=== PATIENT | female | born 1955 | race Caucasian/White ===

== ENCOUNTER → 2016-08-09 | Outpatient (CLI) | payer MEDICARE ==
[2016-08-09 14:15] LABS: ABSOLUTE BASOPHILS # (AUTO) 0.1 10^3/uL (0.0-0.2); ABSOLUTE LYMPHOCYTES (AUTO) 2.9 10^3/uL (0.5-4.7); ABSOLUTE MONOCYTES (AUTO) 0.6 10^3/uL (0.1-1.4); ABSOLUTE NEUT (AUTO) 4.9 10^3/uL (1.7-8.2); BASOPHILS % (AUTO) 0.7 % (0-2); EOSINOPHILS % (AUTO) 10.7 % (0-6); HEMATOCRIT 42.5 % (36.0-47.0); HEMOGLOBIN 13.4 g/dL (12.0-15.5); HGB HCT DIFFERENCE -2.3; LYMPHOCYTES % (AUTO) 30.3 % (13-45); MEAN CORPUSCULAR HEMOGLOBIN 30.2 pg (27.0-33.4); MEAN CORPUSCULAR HGB CONC 31.6 g/dL (32.0-36.0); MEAN CORPUSCULAR VOLUME 96 fl (80-97); MONOCYTES % (AUTO) 6.7 % (3-13); RED BLOOD COUNT 4.44 10^6/uL (3.72-5.28); RED CELL DISTRIBUTION WIDTH 13.5 % (11.5-14.0); SEGMENTED NEUTROPHILS % (AUTO) 51.6 % (42-78); WHITE BLOOD COUNT 9.6 10^3/uL (4.0-10.5)
[2016-08-11 17:36] LABS: IMMUNOGLOBULIN A 138 mg/dL (87-352); IMMUNOGLOBULIN G 725 mg/dL (700-1600)
[2016-08-12 07:32] LABS: IMMUNOGLOBULIN M 141 mg/dL (26-217)
[2016-08-13 07:09] LABS: IMMUNOGLOBULIN D QUANT SERUM <0.12 mg/dL (<14.11)
== END ==
LOC: OD 13:05
PROVIDERS: ATTEND Internal Medicine Pulmonary Disease
DX: R05 Cough (principal); J32.9 Chronic sinusitis, unspecified; J43.9 Emphysema, unspecified; B37.9 Candidiasis, unspecified
CPT/HCPCS: 36415; 82784; 85025; 86701

== ENCOUNTER → 2016-08-13 | Outpatient (CLI) | payer MEDICARE | LOC: OD 10:30 | PROVIDERS: ATTEND Internal Medicine Pulmonary Disease | DX: R05 Cough (principal); J32.9 Chronic sinusitis, unspecified; J43.9 Emphysema, unspecified; B37.9 Candidiasis, unspecified | CPT/HCPCS: 70220 ==

== ENCOUNTER → 2016-08-19 | Outpatient (CLI) | payer MEDICARE | LOC: OD 11:37 | PROVIDERS: ATTEND Internal Medicine Pulmonary Disease | DX: R05 Cough (principal); R79.89 Other specified abnormal findings of blood chemistry | CPT/HCPCS: 36415; 71020; 82785 ==

== ENCOUNTER → 2016-08-29 | Outpatient (CLI) | payer MEDICARE ==
[2016-08-29 15:58] LABS: ABSOLUTE BASOPHILS # (AUTO) 0.1 10^3/uL (0.0-0.2); ABSOLUTE EOSINOPHILS # (AUTO) 1.1 10^3/uL (0.0-0.6); ABSOLUTE LYMPHOCYTES (AUTO) 3.1 10^3/uL (0.5-4.7); ABSOLUTE MONOCYTES (AUTO) 0.6 10^3/uL (0.1-1.4); BASOPHILS % (AUTO) 0.9 % (0-2); EOSINOPHILS % (AUTO) 13.6 % (0-6); HEMATOCRIT 40.1 % (36.0-47.0); HEMOGLOBIN 13.4 g/dL (12.0-15.5); HGB HCT DIFFERENCE 0.1; LYMPHOCYTES % (AUTO) 39.2 % (13-45); MEAN CORPUSCULAR HEMOGLOBIN 31.2 pg (27.0-33.4); MEAN CORPUSCULAR HGB CONC 33.4 g/dL (32.0-36.0); MEAN CORPUSCULAR VOLUME 94 fl (80-97); MONOCYTES % (AUTO) 7.7 % (3-13); RED BLOOD COUNT 4.29 10^6/uL (3.72-5.28); RED CELL DISTRIBUTION WIDTH 13.2 % (11.5-14.0); SEGMENTED NEUTROPHILS % (AUTO) 38.6 % (42-78); WHITE BLOOD COUNT 7.9 10^3/uL (4.0-10.5)
== END ==
LOC: OD 14:45
PROVIDERS: ATTEND Internal Medicine Pulmonary Disease
DX: R05 Cough (principal)
CPT/HCPCS: 36415; 71020; 85025

== ENCOUNTER 2016-09-03 10:48 | Emergency (ER) | payer MEDICARE ==
--- NOTE | 2016-09-03 11:27 | ER Document Report ---
ED Medical Screen (RME) - General Stated Complaint: SHORTNESS OF BREATH AND CHEST PAIN Notes: shortness of breath on/off for 4 weeks has been following with dr barba pulmonology patient is able to speak in full sentences but labored breathing at rest patient has a green house and is concerned for aspergilolosis Denies recent intubation, surgery, BC, tobacco use recent travel about 90 days ago 5.5 hours Patient has been evaluated and I have completed a rapid medical examination. A complete history and physical examination along with evaluation of workup will be completed by the provider once a bed is assigned TRAVEL OUTSIDE OF THE [place] IN LAST 30 DAYS: No - Related Data Allergies/Adverse Reactions: Penicillins Allergy (Mild, Verified 01/13/14 08:16) itching morphine [Morphine] Adverse Reaction (Intermediate, Verified 01/13/14 08:16) AMS Past Medical History - Past Medical History Cardiac Medical History: Denies: Hx Coronary Artery Disease, Hx Heart Attack, Hx Hypertension - Hypotension Pulmonary Medical History: Denies: Hx Asthma, Hx Bronchitis, Hx COPD, Hx Pneumonia Neurological Medical History: Reports: Hx Seizures. Denies: Hx Cerebrovascular Accident Musculoskeltal Medical History: Reports Hx Arthritis - Hands, Spine Past Surgical History: Denies: Hx Hysterectomy - Immunizations Hx Diphtheria, Pertussis, Tetanus Vaccination: Yes Physical Exam - Vital signs Vitals: Temp Pulse Resp BP Pulse Ox 97.8 F 74 22 H 121/102 H 100 09/03/16 11:10 09/03/16 11:10 09/03/16 11:10 09/03/16 11:10 09/03/16 11:10 Course - Vital Signs Vital signs: Temp Pulse Resp BP Pulse Ox 97.8 F 74 22 H 121/102 H 100 09/03/16 11:10 09/03/16 11:10 09/03/16 11:10 09/03/16 11:10 09/03/16 11:10
[2016-09-03] MEDS ORDERED: PREDNISONE 20 MG TABLET PO ONE (11:28)
[2016-09-03] MEDS ORDERED: IPRATROPIUM/ALBUTEROL 0.5-2.5 MG/3 ML AMPUL NEB ONE (11:28)
[2016-09-03] MEDS ORDERED: ALBUTEROL SULFATE 0.083% NEB 2.5 MG/3 ML AMPUL NEB SCH (11:43)
[2016-09-03 13:02] LABS: ABSOLUTE BASOPHILS # (AUTO) 0.1 10^3/uL (0.0-0.2); ABSOLUTE LYMPHOCYTES (AUTO) 3.1 10^3/uL (0.5-4.7); ABSOLUTE MONOCYTES (AUTO) 0.6 10^3/uL (0.1-1.4); ABSOLUTE NEUT (AUTO) 2.6 10^3/uL (1.7-8.2); BASOPHILS % (AUTO) 1.1 % (0-2); EOSINOPHILS % (AUTO) 13.7 % (0-6); HEMATOCRIT 39.3 % (36.0-47.0); HEMOGLOBIN 13.1 g/dL (12.0-15.5); LYMPHOCYTES % (AUTO) 41.9 % (13-45); MEAN CORPUSCULAR HEMOGLOBIN 31.5 pg (27.0-33.4); MEAN CORPUSCULAR HGB CONC 33.4 g/dL (32.0-36.0); MEAN CORPUSCULAR VOLUME 94 fl (80-97); MONOCYTES % (AUTO) 7.5 % (3-13); RED BLOOD COUNT 4.17 10^6/uL (3.72-5.28); RED CELL DISTRIBUTION WIDTH 13.5 % (11.5-14.0); SEGMENTED NEUTROPHILS % (AUTO) 35.8 % (42-78); VENOUS BLOOD BASE EXCESS 1.5 mmol/L; VENOUS BLOOD HCO3 28.5 mmol/L (20-32); VENOUS BLOOD PCO2 55.2 mmHg (35-63); VENOUS BLOOD PH 7.33 (7.30-7.42); WHITE BLOOD COUNT 7.4 10^3/uL (4.0-10.5)
[2016-09-03 13:16] LABS: BLOOD UREA NITROGEN 21 mg/dL (7-20); CALCIUM 9.9 mg/dL (8.4-10.2); CARBON DIOXIDE 28 mmol/L (22-30); CHLORIDE 104 mmol/L (98-107); CREATININE RESULT 0.72 mg/dL (0.52-1.25); GLUCOSE 102 mg/dL (75-110); POTASSIUM 4.9 mmol/L (3.6-5.0)
[2016-09-03 13:17] LABS: ALANINE AMINOTRANSFERASE 24 U/L (9-52); ALBUMIN 3.8 g/dL (3.5-5.0); ALKALINE PHOSPHATASE 118 U/L (38-126); ANION GAP 10 (5-19); ASPARTATE AMINO TRANSFERASE 21 U/L (14-36); BILIRUBIN,TOTAL 0.8 mg/dL (0.2-1.3); TOTAL PROTEIN 6.7 g/dL (6.3-8.2)
--- NOTE | 2016-09-03 13:21 | EKG REPORT ---
SEVERITY:- NORMAL ECG - SINUS RHYTHM : Confirmed by: Justyn Urena MD 03-Sep-2016 13:19:52
--- NOTE | 2016-09-03 16:07 | ER Document Report ---
ED Respiratory Problem - General Chief Complaint: Shortness Of Breath Stated Complaint: SHORTNESS OF BREATH AND CHEST PAIN Time seen by provider: 15:30 Mode of Arrival: Ambulatory Information source: Patient Notes: 61 yo female pt of dr. hermosillo with shortness of brearh and cough since april was unable to see him this week because he had the flu. She was told that she could not see the RIM ROLLER OPERATOR there. Reason she came to ER was to get confirmatory tests and a CT that Dr Hermosillo plans to order. She has diagnosed herself with as Aspergillosis. No new symptoms. Has all the meds she needs as bronchodilaters. TRAVEL OUTSIDE OF THE [place] IN LAST 30 DAYS: No - Related Data Allergies/Adverse Reactions: Penicillins Allergy (Mild, Verified 01/13/14 08:16) itching morphine [Morphine] Adverse Reaction (Intermediate, Verified 01/13/14 08:16) AMS Past Medical History - General Information source: Patient - Social History Smoking Status: Never Smoker Chew tobacco use (# tins/day): No Frequency of alcohol use: Occasional Drug Abuse: None Lives with: Spouse/Significant other Family History: Reviewed & Not Pertinent Patient has suicidal ideation: No Patient has homicidal ideation: No Pulmonary Medical History: Reports: Hx Bronchitis Neurological Medical History: Reports: Hx Seizures Renal/ Medical History: Denies: Hx Peritoneal Dialysis Musculoskeltal Medical History: Reports Hx Arthritis - Hands, Spine Surgical Hx: Negative - Immunizations Hx Diphtheria, Pertussis, Tetanus Vaccination: Yes Review of Systems - Review of Systems Constitutional: No symptoms reported EENT: No symptoms reported Cardiovascular: No symptoms reported Respiratory: See HPI Gastrointestinal: No symptoms reported Genitourinary: No symptoms reported Female Genitourinary: No symptoms reported Musculoskeletal: No symptoms reported Skin: No symptoms reported Hematologic/Lymphatic: No symptoms reported Neurological/Psychological: No symptoms reported Physical Exam - Vital signs Vitals: Temp Pulse Resp BP Pulse Ox 97.8 F 74 22 H 121/102 H 100 09/03/16 11:10 09/03/16 11:10 09/03/16 11:10 09/03/16 11:10 09/03/16 11:10 Interpretation: Tachypneic - when you talk with her she starts getting anxious and breathing fast. - General General appearance: Appears well, Alert In distress: None Notes: thin - HEENT Head: Normocephalic, Atraumatic Eyes: Normal Conjunctiva: Normal Pupils: PERRL Tympanic membrane: Normal Nasal: Normal Mouth/Lips: Normal Mucous membranes: Normal Pharynx: Normal Neck: Supple. No: Lymphadenopathy - Respiratory Respiratory status: No respiratory distress Chest status: Nontender Breath sounds: Normal Chest palpation: Normal - Cardiovascular Rhythm: Regular Heart sounds: Normal auscultation Murmur: No - Abdominal Inspection: Normal Distension: No distension Bowel sounds: Normal Tenderness: Nontender Organomegaly: No organomegaly - Back Back: Normal, Nontender - Extremities General upper extremity: Normal inspection, Nontender, Normal color, Normal ROM , Normal temperature General lower extremity: Normal inspection, Nontender, Normal color, Normal ROM , Normal temperature, Normal weight bearing. No: Celeste's sign - Neurological Neuro grossly intact: Yes Cognition: Normal Orientation: AAOx4 Munith Coma Scale Eye Opening: Spontaneous Jean-Claude Coma Scale Verbal: Oriented Jean-Claude Coma Scale Motor: Obeys Commands Jean-Claude Coma Scale Total: 15 Speech: Normal Motor strength normal: LUE, RUE, LLE, RLE Sensory: Normal - Psychological Associated symptoms: Normal affect, Normal mood - Skin Skin Temperature: Warm Skin Moisture: Dry Skin Color: Normal Skin irregularity: negative: Rash Course - Re-evaluation Re-evalutation: 09/03/16 15:56 Spoke with in who is a nurse practitioner that works with Dr. Hubereen they can see her at 245 tomorrow to investigate further the aspergillosis possible diagnosis of the patient thinks that she has. The CTA shows mild COPD No pulmonary embolism I will discuss this with the patient. I added an aspergillosis antibody screen quantitative to the blood that has artery been drawn today. The patient does not want to take the prednisone that was ordered in triage. She has cardiomegaly. She quit smoking 4 years ago. 09/03/16 16:17 I have consulted with the supervisory physician [facility] dr. victoria, vitals are stable for discharge. I explained to the patient that she can see the nurse practitioner tomorrow at 2:45 pm that she needs to call back for the appointment and I've given a copy of the CT scan and labs done today. 09/03/16 16:44 i confirmed with the office that she will take the 2:45 pm appt tomorrow - Vital Signs Vital signs: Temp Pulse Resp BP Pulse Ox 97.8 F 74 18 123/65 100 09/03/16 11:10 09/03/16 11:10 09/03/16 16:02 09/03/16 16:02 09/03/16 16:01 - Laboratory Result Diagrams: 09/03/16 12:40 09/03/16 12:40 Laboratory results interpreted by me: 09/03/16 09/03/16 09/03/16 12:40 12:40 12:40 Seg Neutrophils % 35.8 L Eosinophils % 13.7 H Absolute Eosinophils 1.0 H D-Dimer 0.70 H BUN 21 H Discharge - Discharge Clinical Impression: chronic shortness of breath, Cough, right lower chest wall pain with cough Condition: Good Disposition: HOME, SELF-CARE Instructions: Chest Pain of Unclear Cause ([facility]), Chronic Obstructive Lung Disease ([facility]), Bronchitis ([facility]) Additional Instructions: Ольга Dc the nurse practitioner at Dr. Hermosillo's office tomorrow at 2:45 PM as instructed, call them today to confirm that she wanted that appointment I have added the aspergillosis antibody test to the blood that was drawn today in the takes 3-5 days for the result copy of labs and imaging given to you return to er if symptoms worsen continue the inhaled bronchodilators that dr hermosillo wants you to take. Prescriptions: Tramadol HCl [Ultram 50 mg Tablet] 50 mg PO ASDIR PRN #20 tablet PRN Reason: Referrals: MICHELLE HERMOSILLO MD [ACTIVE PROVISIONAL STAFF] - Follow up tomorrow
[2016-09-03 16:08] VITALS: BP 123/65
[2016-09-03] MEDS ORDERED: TRAMADOL HCL 50 MG TABLET PO ONE (16:22)
[2016-09-07 19:36] LABS: ASPERGILLUS FLAVUS Negative (Neg:<1:1); ASPERGILLUS FUMIGATUS Negative (Neg:<1:1)
[2016-09-08 06:14] LABS: ASPERGILLUS NIGER Negative (Neg:<1:1)
== END 2016-09-03 16:40 | disposition home or self-care (01) ==
LOC: ER 10:48
DX: R06.02 Shortness of breath (principal); R07.89 Other chest pain; R05 Cough
CPT/HCPCS: 93005; 94640; 99285; 36415; 85025; 80053; 86606 ×3; 85379; 82803; 71275; 93010; A9270 ×2; J7620

== ENCOUNTER → 2018-02-19 | Outpatient (CLI) | payer MEDICARE ==
--- NOTE | 2018-02-19 16:53 | RADIOLOGY REPORT (SQ) ---
EXAM DESCRIPTION: U/S EXTREMITY NONVASCULAR LTD COMPLETED DATE/TIME: 02/19/2018 1:51 pm REASON FOR STUDY: SOFT TISSUE MASS (M79.9) M79.9 SOFT TISSUE DISORDER, UNSPECIFIED COMPARISON: None. TECHNIQUE: Dynamic and static grayscale images acquired of the localized site of clinical concern an d recorded on PACS. Additional selected color Doppler and spectral images recorded. SITE OF CONCERN: Left ankle LIMITATIONS: None. FINDINGS: SKIN AND SUBCUTANEOUS TISSUES: There is a complex mass with some cystic and some septated portions in the area palpable concern along the left ankle. Largest component measures 2.4 x 2.9 x 0 .5 cm. Smaller component is 1.6 x 1.3 x 0.3 cm. Most likely a complicated ganglion cyst for more wo rrisome process not excluded based on the ultrasound alone. DEEP SOFT TISSUES/MUSCLES: No masses. No fluid collections. No edema. VASCULAR: No increased or decreased vascularity. No occlusions. OTHER: No other significant finding. IMPRESSION: Complex mass in the ankle most likely a complicated ganglion cyst. Additional different ial includes complex solid tumors. COMMENT: Consider MRI. TECHNICAL DOCUMENTATION: JOB ID: [id number] [employer]- All Rights Reserved Reading location - IP/workstation name: [email or web address]
== END ==
LOC: RAD 12:39
PROVIDERS: ATTEND Family Medicine
DX: M79.9 Soft tissue disorder, unspecified (principal)
CPT/HCPCS: 76882

== ENCOUNTER 2019-01-15 07:53 | Day surgery (SDC) | payer MEDICARE ==
[~2019-01-15 07:53] MED LIST: PROPOFOL INJ 200 MG/20 ML VIAL IV ONE
[2019-01-15 09:51] VITALS: BP 107/66
--- NOTE | 2019-01-15 11:28 | Operative Report ---
Operative Report DATE OF SURGERY: 01/15/19 Operative Report: The risks, benefits and alternatives of the procedure including the risk of bleeding, perforation requiring surgery have been explained to the patient in detail and informed consent has been obtained. The patient is placed in the left, lateral decubital position. Timeout was called. Propofol medication is administered. Rectal examination is done which did not reveal any masses, tears or fissures. An Olympus videoscope was seen introduced into the patient's rectum. The scope was then carefully advanced all the way to the cecum. The cecum was identified by the usual anatomical landmarks including the ileocecal valve as well as the appendiceal office. Photodocumentation is obtained. The scope was then sequentially pulled back via the various segments of the colon including the ascending colon, hepatic flexure, transverse colon, splenic flexu re, descending colon and finally into the rectosigmoid portions of the colon. Retroflexion maneuvers performed. The risks benefits and alternatives of the procedure explained to the patient in detail and informed consent is obtained.A GIF Olympus video scope was inserted into the patient's mouth and hypopharynx, the esophagus is identified intubated and insufflated ,the scope was then advanced through the esophagus stomach and duodenum ,retroflexion maneuver is done ,the esophagus stomach and first and second portions of the duodenum examined. PREOPERATIVE DIAGNOSIS: Personal history of polyps. Gastroesophageal reflux disease POSTOPERATIVE DIAGNOSIS: Mild right-sided colonic inflammation status post biopsy. Gastritis status post biopsy OPERATION: Colonoscopy with biopsy. EGD with biopsy SURGEON: DENIA BARAHONA ANESTHESIA: LMAC TISSUE REMOVED OR ALTERED: As noted above. COMPLICATIONS: None. ESTIMATED BLOOD LOSS: None. INTRAOPERATIVE FINDINGS: As noted above. PROCEDURE: Patient tolerated the procedure well. No immediate postprocedure complications are noted. Patient is discharged in good condition. Discharge date 01/15/2019. Discharge diet: Regular. Discharge activity: Regular. 2 to 3-week follow-up to discuss findings. Patient is instructed to call the office or proceed to the emergency room should there be any further problems or questions. Wait on the pathology. 5-year surveillance colonoscopy.
== END 2019-01-15 09:57 | disposition home or self-care (01) ==
LOC: END 07:53
PROVIDERS: ATTEND Internal Medicine Gastroenterology
PROC: 0DB68ZX Excision of Stomach, Via Natural or Artificial Opening Endoscopic, Diagnostic (ICD-10-PCS; principal; 2019-01-15 09:30)
PROC: 0DBF8ZX Excision of Right Large Intestine, Via Natural or Artificial Opening Endoscopic, Diagnostic (ICD-10-PCS; 2019-01-15 09:30)
DX: Z12.11 Encounter for screening for malignant neoplasm of colon (principal); K21.9 Gastro-esophageal reflux disease without esophagitis; K31.9 Disease of stomach and duodenum, unspecified; Z86.010 Personal history of colon polyps; F41.9 Anxiety disorder, unspecified; F32.9 Major depressive disorder, single episode, unspecified; J43.9 Emphysema, unspecified; Z79.899 Other long term (current) drug therapy
CPT/HCPCS: 43239; 45380; 88342 ×2; 88305 ×2; 00813; J2704; 813